=== PATIENT | female | born 1995 ===

== ENCOUNTER 2017-06-02 15:44 | Emergency (ER) | payer MEDICAID ==
[2017-06-02 16:09] VITALS: BP 108/75; PULSE 86; RESP 20; TEMP 98.7; O2SAT 100
[2017-06-02] MEDS ORDERED: Sodium Chloride 0.9% 1,000 ML IV STA (17:22)
--- NOTE | 2017-06-02 17:28 | ED PDOC ---
HPI: General Adult Time Seen by Provider: 06/02/17 15:47 Chief Complaint (Nursing): Abdominal Pain Chief Complaint (Provider): Headache, abdominal pain History Per: Patient History/Exam Limitations: no limitations Onset/Duration Of Symptoms: Days Have you had recent travel within the past 21 days to any of the following countries: [place], [place], [place] or [place]?: No Current Symptoms Are (Timing): Still Present Additional Complaint(s): 22 yo female with no medical problems presents with: 1) Suprapubic cramping for 3 weeks which is intermittent. Pt has IUD for 2 years and is concerned about placement. PT reports only spotting in the past but was bleeding for a week after the cramping. No urinary symptoms. Pt denies N /V/d. 2) Pt states today her right arm felt like it fell sleep, then for a few minutes she could not move it. Pt states afterwards her right hand cramped up and in and she could not move it for a few seconds. 3) Migraine currently, frontal region. Pt reports similar in the past. 4) Rash on the back yesterday which resolved with beadryl at home. No new foods , lotions, etc. Past Medical History Reviewed: Historical Data, Nursing Documentation, Vital Signs Vital Signs: Last Vital Signs Temp 98.7 F 06/02/17 16:03 Pulse 86 06/02/17 16:03 Resp 20 06/02/17 16:03 BP 108/75 06/02/17 16:03 Pulse Ox 100 06/02/17 17:28 - Medical History PMH: No Chronic Diseases - Surgical History Surgical History: No Surg Hx - Family History Family History: States: No Known Family Hx - Living Arrangements Living Arrangements: With Family - Social History Current smoker - smoking cessation education provided: No Alcohol: None Drugs: Denies - Home Medications Home Medications: Ambulatory Orders Medication Instructions Recorded Ondansetron ODT [Zofran ODT] 1 odt PO BID PRN #6 odt 08/09/15 - Allergies Allergies/Adverse Reactions: Allergies Allergy/AdvReac Type Severity Reaction Status Date / Time seafood Allergy RASH Uncoded 06/02/17 16:03 Review of Systems ROS Statement: Except As Marked, All Systems Reviewed And Found Negative Constitutional: Negative for: Fever, Chills Cardiovascular: Negative for: Chest Pain, Palpitations Neurological: Positive for: Weakness (Right arm, hand ), Headache. Negative for : Confusion Physical Exam - Reviewed Nursing Documentation Reviewed: Yes Vital Signs Reviewed: Yes - Physical Exam Appears: Positive for: Well, Non-toxic, No Acute Distress Head Exam: Positive for: ATRAUMATIC, NORMAL INSPECTION, NORMOCEPHALIC Skin: Positive for: Normal Color, Warm, DRY Eye Exam: Positive for: Normal appearance ENT: Positive for: Normal ENT Inspection Neck: Positive for: Normal, Painless ROM Cardiovascular/Chest: Positive for: Regular Rate, Rhythm Respiratory: Positive for: Normal Breath Sounds. Negative for: Accessory Muscle Use, Respiratory Distress Gastrointestinal/Abdominal: Positive for: Normal Exam, Bowel Sounds, Soft. Negative for: Tenderness Back: Positive for: Normal Inspection Extremity: Positive for: Normal ROM Neurologic/Psych: Positive for: Alert, Oriented - Laboratory Results Result Diagrams: 06/02/17 18:22 06/02/17 18:22 - ECG O2 Sat by Pulse Oximetry: 100 Medical Decision Making Medical Decision Making: Endorsed pending head CT Disposition - Clinical Impression Clinical Impression: Abdominal pain - Patient ED Disposition Is Patient to be Admitted: Transfer of Care - Disposition Disposition: Transfer of Care Disposition Time: 20:00 Condition: STABLE Forms: KX[employer] (Hungarian)
[2017-06-02 18:27] LABS: EOS % 0.7 % (0.0-4.0); HEMOGLOBIN 15.3 g/dL (12.0-16.0); LYMPH # 1.3 K/uL (1.0-4.3); LYMPH % 45.7 % (20.0-40.0); MEAN CELL VOLUME 94.5 fl (81.0-99.0); MEAN CORPUSCULAR HEMOGLOBIN 31.4 pg (27.0-31.0); MEAN CORPUSCULAR HGB CONC 33.2 g/dL (33.0-37.0); MEAN PLATELET VOLUME 8.9 fl (7.2-11.7); MONO # 0.4 K/uL (0.0-0.8); MONO % 13.3 % (0.0-10.0); NEUT # 1.1 K/uL (1.8-7.0); NEUT % 39.3 % (50.0-75.0); NRBC % 0.1 % (0.0-0.0); RBC 4.86 Mil/uL (3.80-5.20); RED CELL DISTRIBUTION WIDTH 13.2 % (11.5-14.5); WHITE BLOOD COUNT 2.9 K/uL (4.8-10.8)
[2017-06-02 18:41] LABS: ALB/GLOB RATIO 1.3 (1.0-2.1); ALBUMIN 4.4 g/dL (3.5-5.0); ALT/SGPT 26 U/L (9-52); AST/SGOT 18 U/L (14-36); BLOOD UREA NITROGEN 9 mg/dl (7-17); CALCIUM 9.2 mg/dL (8.4-10.2); GFR AFRICAN-AMERICAN > 60; GFR NON-AFRICAN AMERICAN > 60
--- NOTE | 2017-06-02 20:13 | CT ---
EXAM: CT Head Without Intravenous Contrast EXAM DATE/TIME: 06/02/2017 5:21 PM CLINICAL HISTORY: 22 years old, female; Pain; Headache; Additional info: Headaches, abnormal right arm contaction TECHNIQUE: Axial computed tomography images of the head/brain without intravenous contrast. All CT scans at this facility use one or more dose reduction techniques, viz.: automated exposure control; ma/kV adjustment per patient size (including targeted exams where dose is matched to indication; i.e. head); or iterative reconstruction technique. Coronal and sagittal reformatted images were created and reviewed. COMPARISON: There are no prior studies for comparison. FINDINGS: Brain: Ventricles are normal in size and configuration. There is no midline shift. There are no intra-axial or extra-axial mass lesions or areas of hemorrhage. There are no abnormal fluid collections. Sutton-white differentiation is maintained. Ventricles: See above. Bones: Cranial vault is intact. Soft tissues: unremarkable Sinuses: There is no acute sinusitis. Ears and mastoids: Middle ears and mastoids are unremarkable Orbits: Orbital contents are unremarkable. IMPRESSION: No acute intracranial abnormality
--- NOTE | 2017-06-02 21:19 | ED PDOC ---
- Laboratory Results Result Diagrams: 06/02/17 18:22 06/02/17 18:22 Urine POC: Negative Urine dip results: Positive for: Leukocyte Esterase (trace), Nitrate (positive) - ECG O2 Sat by Pulse Oximetry: 100 - Progress ED Course And Treament: 1999 Signed out to me pending CT head results. 2100 On my initial evaluation, pt. in no distress. Resting comfortably. Has no complaints at this time. Pt. informed of results. Upon further questioning pt. states her R arm felt numb and cramped 2 weeks ago and not last night. States she was tying her hair in a pony tail and had her R arm above her head. She then felt pain and cramping to the R arm and she was unable to move it. Cramping lasted for 10-15 minutes then resolved spontaneously. Symptoms have not occurred since. Pt. in no distress. Skin: no rash Abd soft and non-tender. No CVA tenderness b/l. Case d/w Dr. Tejeda who agrees with care. Disposition - Clinical Impression Clinical Impression: UTI (urinary tract infection), Arm pain - POA Present On Arrival: None - Disposition Referrals: Natalya Bridges [Staff Provider] - [facility] Sifuentes [Outside] Disposition: Routine/Home Disposition Time: 21:21 Condition: STABLE Additional Instructions: Follow up with Dr. Bridges for further evaluation. Return to ED immediately if arm cramping happens again, fever develops, or any other concerns arise. Prescriptions: Nitrofurantoin Macrocrystals [Macrobid] 100 mg PO BID #14 cap Instructions: Urinary Tract Infection, Adult (DC), Muscle Spasms (DC) Forms: [employer] (Urdu) Print Language: YAKUT
--- NOTE | 2017-06-03 08:34 | RAD ---
PROCEDURE: Radiographs of the pelvis. HISTORY: IUD placement COMPARISON: None. FINDINGS: BONES: Pelvic Bones: Unremarkable. Hips: No significant degenerative changes of the hips. No femoral head flattening is seen. JOINTS: Sacroiliac Joints: Unremarkable. Pubic Symphysis: Unremarkable. OTHER FINDINGS: IUD is noted within the pelvis. IMPRESSION: Unremarkable radiographs of the pelvis.
== END 2017-06-02 22:00 | disposition home or self-care (01) ==
LOC: H.ER 15:44
DX: N39.0 Urinary tract infection, site not specified (principal)
CPT/HCPCS: 70450; 72170; 80053; 81025; 85025; 87086; 87181; 99283; J7040